=== PATIENT | female | born 1995 | race Caucasian/White ===

== ENCOUNTER 2018-08-03 14:14 | Emergency (ER) | payer OTHER ==
[2018-08-03 14:54] LABS: BASO % 0.2 % (0.0-1.0); EOS % 0.1 % (0.0-3.0); HEMATOCRIT 38.9 % (36.0-47.0); HEMOGLOBIN 13.3 g/dl (12.0-15.5); IMMATURE GRANULOCYTE % 0.4 % (0-3.0); LYMPH # 1.4 10^3/uL (1.5-6.5); LYMPH % 8.9 % (24.0-44.0); MEAN CORPUSCULAR HEMOGLOBIN 27.7 pg (27.0-33.0); MEAN CORPUSCULAR HGB CONC 34.2 g/dl (32.0-36.5); MEAN CORPUSCULAR VOLUME 80.9 fl (80.0-96.0); MONO # 0.8 10^3/uL (0.0-0.8); MONO % 5.3 % (0.0-5.0); NEUTROPHILS # 13.5 10^3/uL (1.8-7.7); NEUTROPHILS % 85.1 % (36.0-66.0); PLATELET COUNT, AUTOMATED 344 10^3/uL (150-450); RED BLOOD COUNT 4.81 10^6/uL (4.00-5.40); RED CELL DISTRIBUTION WIDTH 13.2 % (11.5-14.5); WHITE BLOOD COUNT 15.8 10^3/uL (4.0-10.0)
[2018-08-03 15:47] LABS: HCG, SERUM QUANTITATIVE 64628 MIU/ML
[2018-08-03 17:06] LABS: BILIRUBIN, URINE MANUAL NEGATIVE (NEGATIVE); GLUCOSE, URINE (UA) MANUAL NEGATIVE (NEGATIVE); KETONE, URINE MANUAL 3+ mg/dL (NEGATIVE); NITRITE, URINE MANUAL RFX NEGATIVE (NEGATIVE); PROTEIN, URINE MANUAL REFLEX 3+ mg/dL (NEGATIVE); SP GRAVITY,URINE MANUAL REFLEX 1.025 (1.002-1.035); UROBILINOGEN, URINE MANUAL 1 MG mg/dl (NORMAL)
[2018-08-03 17:07] LABS: BLOOD URINE MANUAL RFX POSITIVE (NEGATIVE); URINE COMMENT Y
[2018-08-03 17:09] LABS: BACTERIA, URINE MOD AMOUNT; HYALINE CAST, URINE NONE SEEN /lpf (0-1); MICROSCOPIC EXAM PERFORMED; MUCUS, URINE SMALL AMOUNT (NEGATIVE); RBC, URINE TNTC /hpf (0-3); SQUAMOUS EPITHELIAL CELL URINE LARGE AMOUNT /hpf (SMALL AMT)
== END 2018-08-03 17:40 | disposition home or self-care (01) ==
LOC: M ED 14:14
DX: O23.41 Unspecified infection of urinary tract in pregnancy, first trimester (principal); N39.0 Urinary tract infection, site not specified; Z3A.11 11 weeks gestation of pregnancy; O20.8 Other hemorrhage in early pregnancy
CPT/HCPCS: 76801

== ENCOUNTER 2018-08-25 18:27 | Emergency (ER) | payer OTHER ==
[~2018-08-25] VITALS: Ht 160 cm; Wt 78.8 kg
[~2018-08-25 18:27] MED LIST: B-650TAB2 PO; MACR100C43 PO; UNIS25TA3 PO
[2018-08-25 19:08] LABS: BASO % 0.2 % (0.0-1.0); EOS % 0.3 % (0.0-3.0); HEMATOCRIT 35.1 % (36.0-47.0); HEMOGLOBIN 12.1 g/dl (12.0-15.5); LYMPH % 17.9 % (24.0-44.0); MEAN CORPUSCULAR HEMOGLOBIN 27.3 pg (27.0-33.0); MEAN CORPUSCULAR HGB CONC 34.5 g/dl (32.0-36.5); MEAN CORPUSCULAR VOLUME 79.1 fl (80.0-96.0); MONO # 0.7 10^3/uL (0.0-0.8); NEUTROPHILS # 8.5 10^3/uL (1.8-7.7); NEUTROPHILS % 75.3 % (36.0-66.0); PLATELET COUNT, AUTOMATED 354 10^3/uL (150-450); RED BLOOD COUNT 4.44 10^6/uL (4.00-5.40); WHITE BLOOD COUNT 11.3 10^3/uL (4.0-10.0)
[2018-08-25 20:05] LABS: BLOOD UREA NITROGEN 6 MG/DL (7-18); CALCIUM LEVEL 8.4 MG/DL (8.5-10.1); CARBON DIOXIDE LEVEL 21 MEQ/L (21-32); CHLORIDE LEVEL 105 MEQ/L (98-107); GLOMERULAR FILTRATION RATE > 60.0 (>60); GLUCOSE, FASTING 82 MG/DL (70-100); HCG, SERUM QUANTITATIVE 40654 MIU/ML; POTASSIUM SERUM 3.6 MEQ/L (3.5-5.1); SODIUM LEVEL 136 MEQ/L (136-145)
--- NOTE | 2018-08-25 20:23 | REPVR ---
EXAM: US TRANSABD PLUS DETAILED EVAL FIRST GEST EXAM DATE/TIME: 08/25/2018 7:48 PM CLINICAL HISTORY: 23 years old, female; Signs and symptoms; Lmp or gestational age (in weeks): 14 w 6 d; Other: Vaginal bleeding; TECHNIQUE: Real-time transabdominal obstetrical ultrasound of the maternal pelvis and a first trimester with image documentation. COMPARISON: No relevant prior studies available. FINDINGS: GESTATION: Gestation: Single fetus. Heart rate: heart rate 155 beats per minute. Presentation: Transverse lie, head to the maternal right. Placenta: Posterior placenta. Placental yu demonstrated. Large subchorionic bleed measures 6.3 x 2.2 x 6.9 cm. Bandlike density demonstrated within the bleed may represent sequelae of recurrent bleeding. Followup evaluation suggested. Amniotic fluid: Amniotic and chorionic fluid are normal for gestational age. Head, face, and neck: Not evaluated Heart: Not evaluated Abdomen: stomach unremarkable Umbilical cord and insertion: Unremarkable Spine: Not fully evaluated Extremities: Visualized segments of the extremities unremarkable BIOMETRY: Estimated gestational age: Gestational age based on average sonographic measurements this 14 weeks 6 days. Gestational age based on LMP dates 14 weeks 2 days. Estimated due date: JACOBO 02/21/2019 using LMP 10 02/17/2019 using ultrasound measurements. Estimated weight: Biparietal diameter: BPD 2.8 cm the Head circumference: Head circumference 11.2 cm Occipital frontal diameter: Cisterna magna diameter: Abdominal circumference: Abdominal circumference 8 cm Femur length: Femur length 1.6 cm. MATERNAL: Uterus: Unremarkable. Cervix: Unremarkable. IMPRESSION: Large subchorionic bleed measures 6.3 x 2.2 x 6.9 cm. Bandlike density demonstrated within the bleed may represent sequelae of recurrent bleeding. Followup evaluation suggested. Gestational age based on LMP is 14 weeks 2 days versus 14 weeks 6 days using average of ultrasound measurements. Electronically signed by: Johnathon Sanchez On 08/25/2018 20:23:22 PM
[2018-08-25 20:49] VITALS: BP 115/55
== END 2018-08-25 21:04 | disposition home or self-care (01) ==
LOC: M ED 18:27
DX: O23.42 Unspecified infection of urinary tract in pregnancy, second trimester (principal); O23.12 Infections of bladder in pregnancy, second trimester; O20.8 Other hemorrhage in early pregnancy; Z3A.14 14 weeks gestation of pregnancy; Z79.899 Other long term (current) drug therapy

== ENCOUNTER 2019-01-25 20:59 | Outpatient (CLI) | payer OTHER ==
[~2019-01-25] VITALS: Ht 160 cm; Wt 85.7 kg
[2019-01-25 21:25] VITALS: BP 139/63
--- NOTE | 2019-01-26 13:05 | HPE ---
DATE OF ADMISSION: 01/25/2019 A 23-year-old 2, para 1, last menstrual period (LMP) 05/03/2018, estimated date of confinement (EDC) 02/21/2019 at 36 and 1 weeks of gestation with a history of contractions. No vaginal loss or bleeding. Risk factors is she had a primary section in 2017 for macrosomia, fail to descend, failure to dilate at [address] that way for 5 hours in the POP position, delivered a live male weighing 8 pounds, 6 ounces. Her labs show she is A+, HIV negative, hepatitis negative, RPR negative, rubella immune, varicella immune. Pap normal. Urine was negative. Gonorrhea and chlamydia are negative. 1-hour glucose early was 92, 1-hour glucose at 28 weeks was 93. GBS is pending. On examination, she is in no acute distress. Symphysis fundus height is 36, vertex OA, category one strip. Incision is clean and dry and nontender. She had a pelvic examination; we did a GBS culture. Cervix is 1 cm, very posterior, very high presenting part, 50% effaced. The patient's subcutaneous membranes are extremely dry. Her urine is 1.005, pH 6, and negative blood pressure 139/63, respirations are 18, pulse is 92 and temperature is 97.0. In reviewing her past section note, noted that she had a baby September 2016 at 40 and 2 weeks of gestation, had induction of labor, failed to get beyond 9 cm and remained so without contractions for 5 hours after which a primary section was performed. Our plan of management here is to hydrate the patient, reevaluate in 2 hours time and hopefully she spaces out these contractions in order to give her several more weeks prior to actual delivery. Will reevaluate this lady in one hours time. Plan was accepted by and . All questions were answered and safe to proceed.
== END 2019-01-26 01:07 | disposition home or self-care (01) ==
LOC: M LDO 20:59
PROVIDERS: ATTEND Obstetrics & Gynecology
DX: O26.893 Other specified pregnancy related conditions, third trimester (principal); Z3A.36 36 weeks gestation of pregnancy
CPT/HCPCS: 59025; G0378; G0463

== ENCOUNTER 2019-01-26 06:57 | Inpatient (IN) | payer OTHER ==
[2019-01-26] VITALS (11 sets, daily range): BP systolic 100–130; BP diastolic 53–65
[~2019-01-26] VITALS: Ht 160 cm; Wt 82.0 kg
[2019-01-26] MEDS ORDERED: LR 1,000 ML IV SCH (07:47)
[2019-01-26] MEDS ORDERED: PENICILLIN G POTASSIUM IV 5 MU in D5W MINI-BAG PLUS 100 ML IV STA (07:47)
[2019-01-26] MEDS ORDERED: LACTATED RINGER'S 1000 ML IV ONE (08:00)
[2019-01-26] MEDS ORDERED: OXYTOCIN 30 UNITS IN 0.9% NaCl 500ML IV BAG (J2590) As Ordered ONE (08:20)
[2019-01-26 08:25] LABS: HEMATOCRIT 32.4 % (36.0-47.0); HEMOGLOBIN 10.3 g/dl (12.0-15.5); MEAN CORPUSCULAR HEMOGLOBIN 23.5 pg (27.0-33.0); MEAN CORPUSCULAR HGB CONC 31.8 g/dl (32.0-36.5); MEAN CORPUSCULAR VOLUME 73.8 fl (80.0-96.0); PLATELET COUNT, AUTOMATED 339 10^3/uL (150-450); RED BLOOD COUNT 4.39 10^6/uL (4.00-5.40); WHITE BLOOD COUNT 23.2 10^3/uL (4.0-10.0)
[2019-01-26 08:50] LABS: CORD GAS ABE A -6.7; CORD GAS ABE V -7.4; CORD GAS HCO3 A 20.8 MEQ/L; CORD GAS HCO3 V 18.4 MEQ/L; CORD GAS O2 SAT A 36.9 %; CORD GAS PCO2 A 49.4 mmHg; CORD GAS PCO2 V 38.2 mmHg; CORD GAS PH A 7.243 UNITS; CORD GAS PH V 7.3 UNITS; CORD GAS PO2 A 19.5 mmHg; CORD GAS PO2 V 33.5 mmHg; CORD GAS SBC A 17.8 MEQ/L; CORD GAS TCO2 A 22.4 MEQ/L; CORD GAS TCO2 V 19.5 MEQ/L
[2019-01-26] MEDS ORDERED: OXYTOCIN INJ 10 UNITS/ML VIAL (J2590) As Ordered ONE (09:06)
[2019-01-26] MEDS ORDERED: METHYLERGONOVINE MALEATE 0.2 MG TAB PO PRN (09:15)
[2019-01-26] MEDS ORDERED: ACETAMINOPHEN TAB 650MG DOSE (2X325MG) PO PRN (09:15)
[2019-01-26] MEDS ORDERED: MEASLES,MUMPS,RUBELLA VACCINE INJ (MMR-II) (90707) SC SCH (09:15)
[2019-01-26] MEDS ORDERED: DIBUCAINE 1% OINTMENT 30GM TOP PRN (09:15)
[2019-01-26] MEDS ORDERED: DOCUSATE SODIUM 100 MG CAP PO PRN (09:15)
[2019-01-26] MEDS ORDERED: OXYTOCIN INJ 10 UNITS/ML VIAL (J2590) IV ONE (09:15)
[2019-01-26] MEDS ORDERED: MOM 30ML SUSPENSION UDC PO PRN (09:15)
[2019-01-26] MEDS ORDERED: RHOGAM 300 MCG (1500 IU) INJ (J2790) IM SCH (09:15)
[2019-01-26] MEDS ORDERED: IBUPROFEN 600 MG TAB PO PRN (09:15)
[2019-01-26] MEDS ORDERED: ACETAMINOPHEN 500 MG TAB PO PRN (09:15)
[2019-01-26] MEDS ORDERED: ANUSOL HC CREAM 30GM TOP PRN (09:15)
[2019-01-26] MEDS: IBUPROFEN 800 MG TAB PO PRN (10:57)
[2019-01-26] MEDS: PRENATAL VITAMINS CHEWABLE TABLET PO SCH (10:57)
[2019-01-26] MEDS: OXYTOCIN DRIP 30 UNITS in APPROPRIATE DILUENT 1 EA IV SCH ×2 (11:09→13:07)
[2019-01-26] MEDS ORDERED: PENICILLIN G POTASSIUM IV 2.5 MU in APPROPRIATE DILUENT 1 EA IV SCH (12:00)
--- NOTE | 2019-01-26 13:36 | IPNPDOC ---
Progress Note Date of Service: Jan 26, 2019 Progress Note patient with urinary retention s/p this AM. Olsen catheter placed and 1200ml urine drained out her bladder. Concern for bleeding initially and vaginal sweep performed. Uterine fundus firm and bleeding minimal. Will transfer to the floor. Olsen catheter to remain in place until tomorrow AM. Ancef for vaginal sweep. DO Shai VS, I&O, 24H, Fishbone Vital Signs/I&O Vital Signs Date Time Temp Pulse Resp B/P (MAP) Pulse Ox O2 Delivery O2 Flow Rate FiO2 01/26/19 11:26 83 18 122/60 (80) 01/26/19 09:41 99.0 Laboratory Data 24H LABS Laboratory Tests 2 01/26/19 08:03: Nucleated Red Blood Cells % (auto) 0.0 01/26/19 08:16: Serology Scanned Report Hepatitis B Testing 01/26/19 08:38: Cord Arterial Blood pH 7.243, Cord Arterial Blood PCO2 49.4, Cord Arterial Blood PO2 19.5, Cord Arterial Blood HCO3 20.8, Cord Arterial Blood Total CO2 22.4, Cord Arterial Blood Base Excess -6.7, Cord Arterial Base Excess (Standard 17.8, Cord Arterial Bld Oxygen Saturation 36.9, Cord Venous Blood pH 7.300, Cord Venous Blood PCO2 38.2, Cord Venous Blood PO2 33.5, Cord Venous Blood HCO3 18.4, Cord Venous Blood Total CO2 19.5, Cord Venous Base Excess (Actual) -7.4, Cord Venous Base Excess (Standard) 18.0, Cord Venous Blood Oxygen Saturation 74.0 CBC/BMP Laboratory Tests 01/26/19 08:03 Red Blood Count 4.39, Mean Corpuscular Volume 73.8 L, Mean Corpuscular Hemoglobin 23.5 L, Mean Corpuscular Hemoglobin Concent 31.8 L, Red Cell Distribution Width 14.0 MANNY VALENTIN DO Jan 26, 2019 13:36
--- NOTE | 2019-01-26 14:44 | IPN ---
DATE: 01/26/2019 This lady is at 36 and 1 weeks of gestation, came in with a history of contractions and some dehydration. We hydrated her up; she still was having uterine irritability, however, with a category one strip. Reexamination of her cervix 2 hours later: There was no change in the cervix. No vaginal bleeding or discharge, still high presenting part, cervix is posterior. The patient was discharged to follow up in the office next week with her appointment. She was given a note regarding work and pelvic rest was indicated. Precautions were given regarding kick chart, premature rupture of membranes, labor and bleeding, and the patient was discharged undelivered.
--- NOTE | 2019-01-26 15:44 | HPE ---
DATE OF ADMISSION: 01/26/2019 HISTORY: A 23-year-old 2, para 1, last menstrual period (LMP) 05/03/2018, estimated date of confinement (EDC) 02/21/2019, at 36 and 2 weeks of gestation, active labor, 6-7 cm, spontaneous rupture of membrane, group B Streptococcus (GBS) status unknown, and she is a candidate for trial of labor after (TOLAC). PAST HISTORY: Primary section 2017 for failure to descend, failure to dilate at term live male infant, 8 pounds 6 ounces LABORATORY DATA: A+, HIV negative, hepatitis negative, rapid plasma reagin (RPR) negative, varicella immune, rubella immune. Pap normal. Urine negative. Gonorrhea and chlamydia negative. 1-hour glucose early was 92 at 28-week. Glucose tolerance test (GTT) was 93. GBS status unknown. On examination, she appears to be significantly distressed. She is pushing on the cervix. Symphysis fundus height is 36. Category 1, 7 cm, ruptured membranes. Possibility of abruption because show is more than just show; there is some active bleeding. We anticipate a vaginal delivery. Her blood pressure is 130/64, respirations are 18, temperatures 98.2 and pulse is 78. Intravenous (IV) will be started. Prophylactic antibiotics will be late for GBS status unknown. Neonatology has been called.
[2019-01-27 05:58] VITALS: BP 105/58
[2019-01-27 06:28] LABS: HEMATOCRIT 29.3 % (36.0-47.0); HEMOGLOBIN 9.2 g/dl (12.0-15.5); MEAN CORPUSCULAR HEMOGLOBIN 22.8 pg (27.0-33.0); MEAN CORPUSCULAR HGB CONC 31.4 g/dl (32.0-36.5); MEAN CORPUSCULAR VOLUME 72.7 fl (80.0-96.0); PLATELET COUNT, AUTOMATED 309 10^3/uL (150-450); RED BLOOD COUNT 4.03 10^6/uL (4.00-5.40); WHITE BLOOD COUNT 14.2 10^3/uL (4.0-10.0)
--- NOTE | 2019-01-27 06:43 | IPNPDOC ---
Progress Note Date of Service: Jan 27, 2019 Progress Note Ms. Sparrow is a 23 yo G2 now P2 who underwent an uncomplicated yesterday morning after being admitted for active labor. She had urinary retention after delivery and a warner catheter was placed. Otherwise her course has been unremarkable. Desire reports feeling well today. She has minimal lochia. She is ambulating and tolerating a regular diet and has minimal pain. Catheter yet to be removed. Vitals - VSS, afebrile, normotensive, non tachycardic General - AAOX3, sitting up in bed, NAD Abdomen - Fundus firm at U-2. No fundal tenderness Extremities - no edema Ms. Sparrow is doing well and is making an appropriate recovery. Will remove warner and monitor for DTV today. She may be candidate for discharge home today as long as baby is cleared by peds. All questions answered. Shai, DO VS, I&O, 24H, Fishbone Vital Signs/I&O Vital Signs Date Time Temp Pulse Resp B/P (MAP) Pulse Ox O2 Delivery O2 Flow Rate FiO2 01/27/19 05:58 97.7 72 17 105/58 (74) I&O- Last 24 Hours up to 6 AM 01/27/19 06:00 Intake Total 1500 ml Output Total 3300 ml Balance -1800 ml Laboratory Data 24H LABS Laboratory Tests 2 01/26/19 08:03: Nucleated Red Blood Cells % (auto) 0.0 01/26/19 08:16: Serology Scanned Report Hepatitis B Testing 01/26/19 08:38: Cord Arterial Blood pH 7.243, Cord Arterial Blood PCO2 49.4, Cord Arterial Blood PO2 19.5, Cord Arterial Blood HCO3 20.8, Cord Arterial Blood Total CO2 22.4, Cord Arterial Blood Base Excess -6.7, Cord Arterial Base Excess (Standard 17.8, Cord Arterial Bld Oxygen Saturation 36.9, Cord Venous Blood pH 7.300, Cord Venous Blood PCO2 38.2, Cord Venous Blood PO2 33.5, Cord Venous Blood HCO3 18.4, Cord Venous Blood Total CO2 19.5, Cord Venous Base Excess (Actual) -7.4, Cord Venous Base Excess (Standard) 18.0, Cord Venous Blood Oxygen Saturation 74.0 01/27/19 06:08: Nucleated Red Blood Cells % (auto) 0.0 CBC/BMP Laboratory Tests 01/26/19 08:03 Red Blood Count 4.39, Mean Corpuscular Volume 73.8 L, Mean Corpuscular Hemoglobin 23.5 L, Mean Corpuscular Hemoglobin Concent 31.8 L, Red Cell Distribution Width 14.0 01/27/19 06:08 Red Blood Count 4.03, Mean Corpuscular Volume 72.7 L, Mean Corpuscular Hemoglobin 22.8 L, Mean Corpuscular Hemoglobin Concent 31.4 L, Red Cell Distribution Width 14.3 MANNY VALENTIN. DO Jan 27, 2019 06:43
[2019-01-27] MEDS: PRENATAL VITAMINS CHEWABLE TABLET PO SCH (08:00)
[2019-01-27] MEDS ORDERED: PRENATAL VITAMINS CHEWABLE TABLET PO SCH ×2 (09:00)
--- NOTE | 2019-01-27 10:57 | DN ---
DATE: 01/26/2019 DELIVERY NOTE This lady is a 2, para 1 admitted in active labor at 36 and 2 weeks of gestation. She was actually 6-7 cm and pushing on her cervix, when examination after IV was started, she had just an anterior lip, we needed to push that aside because she was involuntarily pushing. She then precipitously delivered a live female 2890 grams, scores of 9 and 9 at one and five minutes respectively. Arterial and venous pH were performed. Three-vessel cord. The placenta delivered right after the baby. There was about 50% abruption noted on the placental site. The uterus contracted well down on Pitocin. The patient had a first-degree tear, which was oversewn in the usual fashion with #2-0 Vicryl on a [id number]. On examination, the rest of the anatomy was normal, anterior, posterior and lateral perez, sphincter was intact. Uterus contracted well down on Pitocin. SUMMARY: We have a have a successful vaginal after () of a live female infant, precipitous delivery with a 50% abruption.
[2019-01-27 18:00] VITALS: BP 107/58
[2019-01-28 05:47] VITALS: BP 116/74
--- NOTE | 2019-01-28 07:12 | DS.PDOC ---
Discharge Summary General Date of Admission Jan 26, 2019 at 07:42 Date of Discharge January 28, 2019 Discharge Summary HOSPITAL COURSE: Ms. Sparrow is a 23 yo G2 now P2 who underwent an uncomplicated on 26Jan2019 after being admitted for active labor. Her course has been unremarkable. On her day of discharge she met all appropriate discharge criteria. She was ambulating, voiding, tolerating a regular diet, had minimal lochia and her pain was well controlled with PO medications. DISCHARGE MEDICATIONS: Please see below. ALLERGIES: Please see below. PHYSICAL EXAMINATION ON DISCHARGE: VITAL SIGNS: Please see below. GENERAL: AAOX3, sitting up in bed, NAD ABDOMINAL EXAMINATION: Fundus firm at U-2. No fundal tenderness. EXTREMITIES: No edema PSYCHIATRIC EXAMINATION: Affect appropriate. LABORATORY DATA: Please see below. ACTIVITY: Pelvic rest for 6 weeks. DIET: Regular DISCHARGE PLAN: Discharge home DISPOSITION: Discharge home on 28Jan2019. DISCHARGE INSTRUCTIONS: 1. pelvic rest for 6 weeks. ITEMS TO FOLLOWUP ON ON OUTPATIENT: 1. visit in 6 weeks DISCHARGE CONDITION: Stable. TIME SPENT ON DISCHARGE: Greater than 20 minutes. Manny Gibbons DO Vital Signs/I&Os Vital Signs Date Time Temp Pulse Resp B/P (MAP) Pulse Ox O2 Delivery O2 Flow Rate FiO2 01/28/19 05:47 97.2 73 18 116/74 (88) I&O- Last 24 Hours up to 6 AM 01/28/19 06:00 Output Total 400 ml Balance -400 ml Discharge Medications Scheduled Doxylamine Succinate (Unisom Sleep Aid) 25 Mg Tab, 1 TAB PO QPM, (Reported) Allergies Coded Allergies: No Known Allergies (Unverified , 08/03/18) MANNY GIBBONS DO Jan 28, 2019 07:12
[2019-01-28] MEDS: IBUPROFEN 800 MG TAB PO PRN (08:08)
[2019-01-28] MEDS: PRENATAL VITAMINS CHEWABLE TABLET PO SCH (08:08)
[2019-01-28] MEDS ORDERED: IBUP-1114 PO ×2 (08:51)
[2019-01-28] MEDS ORDERED: ANUS2.5C2 TOP (08:51)
[2019-01-28] MEDS ORDERED: PREN1CHW PO (08:51)
[2019-01-28] MEDS ORDERED: DIBU10OI TOP (08:51)
[2019-01-28] MEDS ORDERED: MAPA500T2 PO ×2 (08:51)
== END 2019-01-28 12:35 | disposition home or self-care (01) | DRG 807 ==
LOC: M LDO 06:57 → M LDI 07:42 → M OBS 14:55
PROVIDERS: ADMIT Obstetrics & Gynecology; ATTEND Obstetrics & Gynecology
PROC: 10E0XZZ Delivery of Products of Conception, External Approach (ICD-10-PCS; principal; 2019-01-26)
PROC: 0HQ9XZZ Repair Perineum Skin, External Approach (ICD-10-PCS; 2019-01-26)
DX: O45.93 Premature separation of placenta, unspecified, third trimester (principal); Z37.0 Single live birth; O34.211 Maternal care for low transverse scar from previous cesarean delivery; O62.3 Precipitate labor; O70.0 First degree perineal laceration during delivery; Z3A.36 36 weeks gestation of pregnancy; R33.9 Retention of urine, unspecified; O99.89 Other specified diseases and conditions complicating pregnancy, childbirth and the puerperium